=== PATIENT | male | born 1935 | race Hispanic/Latino ===

== ENCOUNTER 2019-06-08 12:16 | Day surgery (SDC) | payer MEDICARE, OTHER ==
[~2019-06-08 12:16] MED LIST: IOPIDINE ONE; MYDRIACYL ONE; NEOFRIN ONE
[2019-06-08] MEDS ORDERED: MYDRIACYL OD ONE (12:40)
[2019-06-08] MEDS ORDERED: IOPIDINE OD ONE (12:40)
[2019-06-08] MEDS ORDERED: NEOFRIN OD ONE (12:40)
[2019-06-08 15:11] VITALS: BP 141/75
== END 2019-06-08 12:17 | disposition home or self-care (01) ==
LOC: OR 12:16
PROVIDERS: ATTEND Specialist
DX: E11.36 Type 2 diabetes mellitus with diabetic cataract (principal); H26.491 Other secondary cataract, right eye; I10 Essential (primary) hypertension; J45.909 Unspecified asthma, uncomplicated; M19.90 Unspecified osteoarthritis, unspecified site; M81.0 Age-related osteoporosis without current pathological fracture; Z79.899 Other long term (current) drug therapy; Z98.41 Cataract extraction status, right eye; Z98.42 Cataract extraction status, left eye; Z98.890 Other specified postprocedural states; Z85.89 Personal history of malignant neoplasm of other organs and systems